=== PATIENT | male | born 1985 | race Caucasian/White ===

== ENCOUNTER 2020-10-06 06:00 | Day surgery (SDC) | payer OTHER ==
[~2020-10-06] VITALS: Ht 177.8 cm; Wt 87.5 kg
[~2020-10-06 06:00] MED LIST: Augmentin 875-1 EACH PO; CEPH500 PO; ESOM20; IBUP600 PO; NEOPOLHCSU AD
--- NOTE | 2020-10-06 10:11 | NUR ---
ASSUMED CARE OF ROB RECIEVED REPRT AND OPATIENT FROM Brian MONTE
--- NOTE | 2020-10-06 10:30 | NUR ---
PATIENT GETTING DRESSED AT THIS TIME IV REMOVED AND PATIENT CONTINUES TO DENY PAIN RIDE CALLED
--- NOTE | 2020-10-06 10:31 | NUR ---
[facility]
--- NOTE | 2020-10-06 10:33 | NUR ---
Patient up to Ambulate independently. Gait steady.DENIES NUMBNESS/TINGLING IN LOWER EXTREMITIES. Discharge instructions reviewed with patient. Patient verbalizes understanding. Copy given to patient to take home. Discharged via wheelchair to private car for ride home WITH FATHER. PT DISCHARGED WITH ATHLETIC SUPPORT AND PAIN PRESCRIPTION IN DISCHARGE FOLDER.
--- NOTE | 2020-10-10 09:32 | NUR ---
10/10/20 0932 PapVasyl howard CORECTION OF CHARTED SITE FROM BILATERAL TO RIGHT
== END 2020-10-06 10:35 | disposition home or self-care (01) ==
LOC: ORSCMMR 06:00 → ORD 07:30 → ORSCMMR 10:35
PROVIDERS: Surgery
PROC: 8E0W4CZ Robotic Assisted Procedure of Trunk Region, Percutaneous Endoscopic Approach (ICD-10-PCS; principal; 2020-10-06 07:30)
PROC: 0YU54JZ Supplement Right Inguinal Region with Synthetic Substitute, Percutaneous Endoscopic Approach (ICD-10-PCS; principal; 2020-10-06 07:30)
DX: K40.90 Unilateral inguinal hernia, without obstruction or gangrene, not specified as recurrent (principal)
CPT/HCPCS: 49650; S2900; C1781; J0690; J1100; J1885; J2250; J2405; J2704; J2765; J3010; J7120

== ENCOUNTER 2025-03-04 08:29 | Emergency (ER) | payer SELFPAY ==
[~2025-03-04] VITALS: Ht 177.8 cm; Wt 90.7 kg
[2025-03-04 10:35] VITALS: BP 122/81
[2025-03-04] MEDS ORDERED: LEVFLO500 PO (10:39)
== END 2025-03-04 10:43 | disposition home or self-care (01) ==
LOC: ER 08:29
DX: N45.1 Epididymitis (principal); Z87.891 Personal history of nicotine dependence
CPT/HCPCS: 76870; 99284-25; A9270